=== PATIENT | male | born 1980 | race Caucasian/White ===

== ENCOUNTER 2017-12-15 13:42 | Observation (INO) | payer SELFPAY ==
--- NOTE | 2017-12-15 14:10 | RAD ---
RIGHT HAND 3 VIEWS: Date: 12/15/17 HISTORY: Trauma. COMPARISON: None. FINDINGS: There is a transversely oriented fracture of the middle phalanx neck of small finger with dorsal disp lacement nearly one shaft width of dorsal angulation. IMPRESSION: Transversely oriented extraarticular fracture of middle phalanx neck of small finger with dorsal disp lacement and angulation. POS: [facility]
[2017-12-15] MEDS ORDERED: Ondansetron HCl/PF 4 MG/2 ML Vial ONE (14:45)
[2017-12-15] MEDS ORDERED: Lidocaine 1% PF 5 ML VIAL ONE (14:45)
[2017-12-15] MEDS ORDERED: PROPOFOL 200 MG/20 ML VIAL ONE (14:45)
[2017-12-15] MEDS ORDERED: Ketorolac Tromethamine 30 MG/ML VIAL ONE (14:45)
[2017-12-15] MEDS ORDERED: Adacel (T-DAP) 0.5 ML VIAL ONE (14:47)
[2017-12-15] MEDS ORDERED: Morphine 4 MG/ML VIAL ONE ×2 (14:59→19:00)
[2017-12-15] MEDS ORDERED: CEFAZOLIN/Water 2 GM/20 ML SYRINGE ONE (15:56)
[2017-12-15 16:06] LABS: #Eosinphils 0.1 thou/uL (0.0-0.7); #Lymphocytes 1.4 thou/uL (1.20-3.40); #Monocytes 0.5 thou/uL (0.11-0.59); #Neutrophils 7.7 thou/uL (1.40-6.50); %Basophils 0.1 % (0.0-1.0); %Eosinophils 0.8 % (0.0-10.0); %Lymphocytes 14.6 % (21.0-51.0); %Monocytes 5.5 % (0.0-10.0); Hemoglobin 14.3 g/dL (14.0-18.0); Mean Corpuscular HGB CONC 33.2 g/dL (32.0-36.0); Mean Corpuscular Hemoglobin 29.7 pg (27.0-31.0); Mean Corpuscular Volume 89.6 fL (78.0-98.0); Mean Platelet Volume 9.4 fL (7.4-10.4); Platelet Count 209 thou/uL (130-400); RBC Distribution Width 12.1 % (11.5-14.5); White Blood Cell (WBC) Count 9.7 thou/uL (4.8-10.8)
[2017-12-15 16:27] LABS: ALT (SGPT) 28 U/L (8-55); AST (SGOT) 25 U/L (5-34); Albumin 4.7 g/dL (3.5-5.0); Alkaline Phosphatase 58 U/L (40-150); Anion Gap 10 mmol/L (10-20); BUN (Urea Nitrogen) 13 mg/dL (8.9-20.6); Bilirubin, Total 0.5 mg/dL (0.2-1.2); Calc. Creatinine Clearance 0 mL/min (70-130); Carbon Dioxide 27 mmol/L (22-29); Chloride 105 mmol/L (98-107); Estimated GFR-MDRD 76; Globulin 3.1 g/dL (2.4-3.5); Glucose 101 mg/dL (70-105); Potassium 4.1 mmol/L (3.5-5.1); Protein, Total 7.8 g/dL (6.0-8.3); Sodium 138 mmol/L (136-145)
[2017-12-15] MEDS ORDERED: Bacitracin Zinc Ointment 30 gm TUBE ONE (20:04)
[2017-12-15] MEDS ORDERED: Bupivacaine PF 0.5% 30 ML VIAL ONE (20:04)
[2017-12-15] MEDS ORDERED: Sodium Chloride 0.9% 30 ML ONE (20:04)
[2017-12-15] MEDS ORDERED: Midazolam HCl 2 mg/2 ml Vial ONE (20:19)
[2017-12-15] MEDS ORDERED: Fentanyl 100 MCG/2 ML VIAL ONE ×2 (20:19→23:49)
[2017-12-15] MEDS ORDERED: RENALLY ADJUST ANTIBIOTICS FS SCH (23:45)
[2017-12-15] MEDS ORDERED: Promethazine HCl 25 MG/ML VIAL IM PRN (23:47)
[2017-12-15] MEDS ORDERED: Ondansetron HCl/PF 4 MG/2 ML Vial IV PRN (23:47)
[2017-12-15] MEDS ORDERED: Milk Of Magnesia 30 ML UDCUP PO PRN (23:47)
[2017-12-16] MEDS: Ketorolac Tromethamine 30 MG/ML VIAL IVP SCH ×4 (00:42→17:05)
[2017-12-16] MEDS: Ketorolac Tromethamine 30 MG/ML VIAL IVP PRN ×2 (00:43→06:10)
[2017-12-16] MEDS ORDERED: Vancomycin HCl 1 GM in Premix Bag 1 BAG IVPB SCH (02:00)
[2017-12-16] MEDS: HYDROcodone/Acetaminophen 10/325 mg Tablet PO PRN ×4 (02:28→17:02)
[2017-12-16 04:29] VITALS: BMI 28.5
[2017-12-16 05:09] LABS: #Eosinphils 0.1 thou/uL (0.0-0.7); #Lymphocytes 2.4 thou/uL (1.20-3.40); #Monocytes 0.7 thou/uL (0.11-0.59); #Neutrophils 6.1 thou/uL (1.40-6.50); %Basophils 0.5 % (0.0-1.0); %Eosinophils 1.2 % (0.0-10.0); %Lymphocytes 25.7 % (21.0-51.0); %Monocytes 7.8 % (0.0-10.0); %Neutrophils 64.8 % (42.0-75.0); Hemoglobin 12.4 g/dL (14.0-18.0); Mean Corpuscular HGB CONC 33.8 g/dL (32.0-36.0); Mean Corpuscular Hemoglobin 30.5 pg (27.0-31.0); Mean Corpuscular Volume 90.5 fL (78.0-98.0); Platelet Count 152 thou/uL (130-400); Red Blood Cell (RBC) Count 4.07 mill/uL (4.70-6.10); White Blood Cell (WBC) Count 9.3 thou/uL (4.8-10.8)
[2017-12-16] MEDS ORDERED: Aspirin 81 mg Enteric Coated Tablet PO SCH (09:00)
--- NOTE | 2017-12-16 09:30 | RAD ---
INTRAOPERATIVE FLUOROSCOPIC IMAGING 4 VIEWS 5TH DIGIT RIGHT HAND: INDICATION: Intraoperative fracture fixation. FINDINGS: There are 2 metallic K-wires traversing the fracture site of the middle phalanx of the 5th digit. IMPRESSION: Intraoperative views for pinning of fracture 5th digit middle phalanx. Osseous detail is limited. POS: [facility]
[2017-12-16 16:25] VITALS: BP 120/75; TEMP 97.8
--- NOTE | 2017-12-17 08:36 | EKG ---
Test Reason : Blood Pressure : / mmHG Vent. Rate : 066 BPM Atrial Rate : 066 BPM P-R Int : 142 ms QRS Dur : 094 ms QT Int : 414 ms P-R-T Axes : 018 039 038 degrees QTc Int : 434 ms Normal sinus rhythm Normal ECG Confirmed by FABIAN MARCOS ([id number]) on 12/17/2017 8:36:03 AM Referred By: Confirmed By:FABIAN MARCOS
[2017-12-17] MEDS ORDERED: TETANUS AND DIPHTHERIA TOX/PF 0.5 ML DISP.SYRIN IM SCH (09:00)
--- NOTE | 2017-12-18 12:36 | OP ---
DATE OF PROCEDURE: 12/15/2017 PREOPERATIVE DIAGNOSIS: Open distal neck shaft junction, middle phalanx, right small finger with com minution grade I. POSTOPERATIVE DIAGNOSIS: Open distal neck shaft junction, middle phalanx, right small finger with co mminution grade I. FINDINGS: Marked interfragmentary comminution, minimal contamination, soft tissue all looked general ly intact. PROCEDURES PERFORMED: 1. Debridement of wound. 2. Closure of wound, 2 cm. 3. ORIF right small finger, proximal middle phalanx displaced and 100% angulated almost 80 degrees. 4. C-arm supervision. 5. Wound closure, 2 cm. SPECIMEN REMOVED: None. TOURNIQUET TIME: 82 minutes. ESTIMATED BLOOD LOSS: Less than 10 mL. INDICATIONS: The patient with grade I injury while having a mann fall onto his hand while working wi th a tire and has been in his usual hobby capacity. He reports that he has no numbness or tingling i n the emergency room. He never had 2-point discrimination deficit radial ulnar aspect but did have s lightly decreased capillary refill in this area. Radiographs revealed the fracture was almost 60 degrees apex palmar angulated 60% displaced frontal s agittal plane with a fragment comminution, operative intervention was indicated. DESCRIPTION OF PROCEDURE: After successful general LMA technique, the limb was prepped and draped. C-arm was brought in to the field confirmed the digit deformity. We then exsanguinated the limb and made a volar approach over the 1 cm wound and carried this through skin, subcutaneous tissue, protect ing the neurovascular bundles, we knew normal 2-point discrimination existed before. We then saw the re was a small rent in the volar plate, we developed this with direct blunt dissection longitudinally and then irrigated the fracture through this area. Three liters normal saline was used. Then returned to the dorsal side where we knew the fracture would be more successful, made a Altaf t ype incision, carried through skin and subcutaneous tissue, exposed the fracture and debrided and irr igated as described in debridement and irrigation techniques. The patient then had the wound, the fracture evaluated and the ulnar dorsal radial ridge, sparing the central portion was elevated slightly, we began our debridement with a curette, Adson's, Crile, and high pressure normal saline. Technique was excision at this point. Once we had adequate debridement, we then went about open reduction. Then we began a series of three 2 K-wire passages with finally stable fixation with no malrotation and coaptation of the fragments. The patient then had the wound undergo further evidence of fixation were grossly normal motion. C-a rm supervision showed less than 10% frontal plane and less than 10-degree sagittal plane, successful orientation. Wires were cut right at the skin layer at the level after being bent 90 degrees, we fin ished irrigation with 500 mL in each wound, closed them with primarily 5-0 nylon and the patient left the operating room without evidence of anesthetic or operative complications.
== END 2017-12-16 18:58 | disposition home or self-care (01) ==
LOC: ERS 13:42 → SDC/OP 20:59 → SURG A 12-16 00:03
PROVIDERS: ADMIT Orthopaedic Surgery Hand Surgery; ATTEND Orthopaedic Surgery Hand Surgery
PROC: 0PST0ZZ Reposition Right Finger Phalanx, Open Approach (ICD-10-PCS; principal; 2017-12-16)
PROC: 0PST04Z Reposition Right Finger Phalanx with Internal Fixation Device, Open Approach (ICD-10-PCS; 2017-12-16)
DX: S62.626B Displaced fracture of middle phalanx of right little finger, initial encounter for open fracture (principal)
CPT/HCPCS: 29125; 36415; 64450; 76001; 80053; 85025; 90471; 90715; 93005; 96365; 96372; 96374; 96375; 96376; G0378; J1885; J2001; J2250; J2270; J2405; J2704; J3010; J3370; J3490; S0020